=== PATIENT | female | born 1950 | race Caucasian/White ===

== ENCOUNTER 2025-02-05 12:09 | Emergency (ER) | payer OTHER, SELFPAY ==
[2025-02-05 12:11] VITALS: BP 163/89
[2025-02-05 15:35] LABS: % Basophils 0.2 % (0-2); % Eosinophils 0.4 % (0-6); % Immature Granulocytes 0.1 % (0-0.5); % Lymphocytes 16.7 % (20.5-51.1); % Monocytes 6.8 % (1.7-9.3); % Neutrophils 75.8 % (42.2-75.2); Absolute Lymphocytes 1.7 10^3/uL (1.2-3.4); Absolute Monocytes 0.7 10^3/uL (0.1-0.6); Absolute Neutrophils 7.6 10^3/uL (1.4-6.5); Hematocrit 37.5 % (37.0-47.0); Mean Corp Hgb Conc. 34.7 g/dL (33.0-37.0); Mean Corpuscular Hgb 31.3 pg (27.0-31.0); Mean Corpuscular Volume 90.4 fL (81.0-99.0); Mean Platelet Volume 8.9 fL (7.4-10.4); Nucleated Red Blood Cells % 0 %; Platelet Count 422 10^3/uL (130-400); Red Blood Cell Count 4.15 10^6/uL (4.20-5.40); Red Cell Dist. Width 12.7 % (11.5-14.5)
[2025-02-05 15:47] LABS: ALT (SGPT) 15 U/L (0-35); AST (SGOT) 18 U/L (14-36); Albumin 3.6 g/dl (3.5-5.0); Alkaline Phosphatase 79 U/L (38-126); Blood Urea Nitrogen 9 mg/dl (7-17); Carbon Dioxide 25 mmol/L (22-30); Chloride 101 mmol/L (98-107); Glucose 89 mg/dl (70-99); Potassium 4.2 mmol/L (3.5-5.1); Sodium 133 mmol/L (135-145); Total Bilirubin 0.8 mg/dl (0.2-1.3); Total Protein 6.2 g/dl (6.3-8.2); eGFR > 60.00
--- NOTE | 2025-02-05 16:12 | ED.GENMED ---
History of Present Illness
<Tee Marino PA-C - Last Filed: 02/06/25 08:09>
General
Chief Complaint: Bowel Problem
Time Seen by Provider: 02/05/25 14:07
History of Present Illness
History of Present Illness:
74-year-old female with history of GERD and hyperlipidemia presents to the emergency department for evaluation of constipation. She states she has not had a bowel movement for over 1 week. She feels as though she is still passing small amounts of
flatus and small volume of stool however none today. She notes that previously she was unable to obtain a colonoscopy due to a sigmoid colonic stricture and underwent digital CT guided colonoscopy. Her primary care physician had her go for an
outpatient x-ray earlier in the week that showed large volume of air within the hepatic flexure as well as increased stool in the descending colon. She has been trying numerous laxatives and stool softeners without relief. Reports mild abdominal
distention at this time. No fevers or chills.
Review of Systems
<Tee Marino PA-C - Last Filed: 02/06/25 08:09>
Review of Systems
Allergies reviewed?: Yes
All Other Systems: ROS reviewed and negative except as documented in HPI and ROS
Phy Exam
<Tee Marino PA-C - Last Filed: 02/06/25 08:09>
Physical Exam
Physical Exam:
GEN: Well appearing, NAD, WDWN
HEENT: Oral mucosa moist, no scleral icterus
Cardiac: Regular rate
Lung: No respiratory distress, no tachypnea
Abdomen: Soft, no rigidity
Rectum: No stool in the rectal vault
MSK: No gross deformity or injuries
Skin: Good color, no pallor or jaundice, no rashes
Neuro: AO x3, moves all extremities freely
Psych: Calm, cooperative
Course
<Tee Marino PA-C - Last Filed: 02/06/25 08:09>
Orders/Labs/Results
Orders:
Orders
02/05/25 15:09
CT Abd/pelvis W Iv Cont Urgent
Comment: with water soluble rectal contrast as well
Reason For Exam: abd distention/lack of flatus; hx sigmoid strictur
02/05/25 15:20
Complete Blood Count/With Diff Urgent
Comprehensive Metabolic Panel Urgent
02/05/25 18:25
Amoxicillin 875 mg/Clav 125 mg [Augmentin 875 mg/125 mg] 1 tablet PO NOW STA
Abnormal Lab Results
02/05/25
15:20
RBC 4.15 L 10^6/uL
(4.20-5.40)
MCH 31.3 H pg
(27.0-31.0)
Plt Count 422 H 10^3/uL
(130-400)
Absolute Neuts (auto) 7.6 H 10^3/uL
(1.4-6.5)
Absolute Monos (auto) 0.7 H 10^3/uL
(0.1-0.6)
Neutrophils % 75.8 H %
(42.2-75.2)
Lymphocytes % 16.7 L %
(20.5-51.1)
Sodium 133 L mmol/L
(135-145)
Total Protein 6.2 L g/dl
(6.3-8.2)
02/05/25 15:20
02/05/25 15:20
Vital Signs
Initial and Last Documented VS:
Initial Vital Signs
Temp Pulse Resp BP Pulse Ox
97.6 F 76 18 163/89 97
02/05/25 12:11 02/05/25 12:11 02/05/25 12:11 02/05/25 12:11 02/05/25 12:11
Last Documented Vital Signs
Temp Pulse Resp BP Pulse Ox
97.6 F 72 15 158/82 98
02/05/25 12:11 02/05/25 19:18 02/05/25 19:18 02/05/25 19:18 02/05/25 19:18
<Luz Mendoza NP - Last Filed: 02/05/25 18:33>
Orders/Labs/Results
Orders:
Orders
02/05/25 15:09
CT Abd/pelvis W Iv Cont Urgent
Comment: with water soluble rectal contrast as well
Reason For Exam: abd distention/lack of flatus; hx sigmoid strictur
02/05/25 15:20
Complete Blood Count/With Diff Urgent
Comprehensive Metabolic Panel Urgent
02/05/25 18:25
Amoxicillin 875 mg/Clav 125 mg [Augmentin 875 mg/125 mg] 1 tablet PO NOW STA
Abnormal Lab Results
02/05/25
15:20
RBC 4.15 L 10^6/uL
(4.20-5.40)
MCH 31.3 H pg
(27.0-31.0)
Plt Count 422 H 10^3/uL
(130-400)
Absolute Neuts (auto) 7.6 H 10^3/uL
(1.4-6.5)
Absolute Monos (auto) 0.7 H 10^3/uL
(0.1-0.6)
Neutrophils % 75.8 H %
(42.2-75.2)
Lymphocytes % 16.7 L %
(20.5-51.1)
Sodium 133 L mmol/L
(135-145)
Total Protein 6.2 L g/dl
(6.3-8.2)
02/05/25 15:20
02/05/25 15:20
Vital Signs
Initial and Last Documented VS:
Initial Vital Signs
Temp Pulse Resp BP Pulse Ox
97.6 F 76 18 163/89 97
02/05/25 12:11 02/05/25 12:11 02/05/25 12:11 02/05/25 12:11 02/05/25 12:11
Last Documented Vital Signs
Temp Pulse Resp BP Pulse Ox
97.6 F 72 15 158/82 98
02/05/25 12:11 02/05/25 19:18 02/05/25 19:18 02/05/25 19:18 02/05/25 19:18
<Tee Marino PA-C - Last Filed: 02/06/25 08:09>
MDM/Problems Addressed
MDM/Problems Addressed:
74 yo female presents with constipation however negative rectal exam with no fecal impaction. She has a reported history of a colonic stricture. Will be sent for CT with IV and rectal contrast for further assessment of a possible distal colonic
obstruction. Will sign out to Luz Mendoza NP pending imaging and disposition decision
<Luz Mendoza NP - Last Filed: 02/05/25 18:33>
*Critical Care Note
Total Time (30-74mins, 75-104mins- exclusive of procedures): Not Applicable
<Luz Mendoza NP - Last Filed: 02/05/25 18:33>
Update Note
Update Note:
CT report of sigmoid diverticulitis. Reviewed findings with her. She was given a copy of CT report. Placed on augmenting 875mg bid, first dose given in ED. SHe is discharged home and will follow up with PCP. Given instructions on s/s to return
to ED and she is agreeable to plan.
ED Attending Note
<Tee Marino PA-C - Last Filed: 02/06/25 08:09>
-
Portions of this chart may have been created with voice recognition software.� Occasional wrong word or��sound alike� substitutions may have occurred due to the inherent limitations of voice recognition software.
Discharge Plan
Departure
Patient Disposition: Home (Routine Discharge)
Date of Disposition: 02/05/25
Time of Disposition: 18:25
Patient with high blood pressure during this ER visit?: No
Condition: Good
Covid-19: Not Applicable
Discharge Problem:
Diverticulitis
Instructions: Clear Liquid Diet, Diverticulitis - Discharge instructions
Prescriptions:
New
amoxicillin-pot clavulanate 875-125 mg tablet
1 tab PO BID Qty: 20 0RF
Referrals:
Lele Cee MD [Active] - Call in 1-3 days for appt
Marianne Parrish MD [Family Provider] - Tomorrow
Activity Restrictions/Additional Instructions:
Return to the emergency department for any changes in/worsening of your symptoms, especially fever/chills, vomiting, increasing abdominal pain.
Interventions
Interventions:
*Risk Screen - Suicide Last Done: 02/05/25 12:11
*General Assessment Last Done: 02/05/25 12:11
*Neglect/Abuse Screening Last Done: 02/05/25 12:11
*Nursing Disposition Last Done: 02/05/25 19:22
FL-[id number]-[id number] Assessment Last Done: 02/05/25 16:24
Discharge Date and Time
Discharge Date/Time: 02/05/25 19:23
Print Language: NORWEGI[place]
[2025-02-05] MEDS: AUGMENTIN 875 MG/125 MG 1 TABLET PO (19:16)
[2025-02-05 19:18] VITALS: BP 158/82
== END 2025-02-05 19:23 | disposition home or self-care (01) ==
LOC: EMR 12:09
PROVIDERS: Physician Assistant; EMERGENCY PHYSICIAN Emergency Medicine; FAMILY PHYSICIAN Internal Medicine Geriatric Medicine
DX: K57.32 Diverticulitis of large intestine without perforation or abscess without bleeding (principal); K21.9 Gastro-esophageal reflux disease without esophagitis; E78.00 Pure hypercholesterolemia, unspecified; K59.00 Constipation, unspecified
CPT/HCPCS: 99283; 74177; 80053; 85025; Q9967